=== PATIENT | female | born 1950 | race Caucasian/White ===

== ENCOUNTER 2020-10-01 07:50 | Outpatient (CLI) | payer MEDICARE, SELFPAY ==
--- NOTE | ~2020-10-01 | DEXA_ITS ---
Bone Density Report Name: Kimberley Rivera Age: 69 Sex: Female Ethnicity: White Date of : 1950 Indication: postmenopausal; height loss; cancer; Referring Provider: Pedro Schwartz Study: Bone densitometry was performed. Exam Date: October 01, 2020 Accession number: [id number] Bone Density: Region BMD T-score Z-score Classification AP Spine (L1, L3) 0.924 -0.8 1.2 Normal Femoral Neck (Left) 0.674 -1.6 0.2 Osteopenia Total Hip (Left) 0.817 -1.0 0.5 Normal Total Hip Bilateral Avg 0.805 -1.1 0.4 Osteopenia Femoral Neck (Right) 0.672 -1.6 0.2 Osteopenia Total Hip (Right) 0.793 -1.2 0.3 Osteopenia World Health Organization criteria for BMD impression classify patients as: Normal (T-score at or above -1.0), Osteopenia (T-score between -1.0 and -2.5), or Osteoporosis (T-score at or below -2.5). 10-year Fracture Risk(1): Major Osteoporotic Fracture 8.8% Hip Fracture 1.4% Reported Risk Factors: [place] (), Neck BMD=0.672, BMI=20.6 (1) FRAX(R) Version 3.08. Fracture probability calculated for an untreated patient. Fracture probability may be lower if the patient has received treatment. Clinical Information Provided by Patient: Has used the following medications: Vitamin D, Calcium Has the following medical conditions: Cancer Patient maximum height was 65.5 Menopause Age: 54 Drinks caffeinated beverages Onset of menses at age 13 Number of children 2 Impression: The patient has low bone mass, based on the Left Femoral Neck T-score. The patient has an estimated ten-year risk of hip fracture of 1.4% and an estimated ten-year risk of major fracture of 8.8%, based on the WHO FRAX algorithm. Discussion: BONE DENSITY IS LOW AT ONE OR MORE SKELETAL SITES. This patient's lowest T-score is low at one or more skeletal sites. It meets the World Health Organization's (WHO) criteria for ?low bone mass? (T-score between -1.0 and -2.5). The patient's 10-year risk of fracture as calculated by FRAX is less than the threshold where pharmacological therapy is recommended by the National Osteoporosis Foundation (NOF). However, all treatment decisions require clinical judgment and consideration of individual patient factors, including patient preferences, comorbidities, previous drug use, risk factors not captured in the FRAX model (e.g., frailty, falls, vitamin D deficiency, increased bone turnover, interval significant decline in bone density) and possible under or overestimation of fracture risk by FRAX. The patient should follow a healthful lifestyle (good nutrition with adequate calcium and vitamin D, and appropriate weight-bearing exercise). Follow-Up: Consider repeating this study in 2 to 3 years to reassess this patient's status, or sooner if there is some new clinical indication. Reported by: FRANKIE on
== END 2020-10-01 07:51 | disposition home or self-care (01) ==
PROVIDERS: PCP Family Medicine; Visit Provider Family Medicine
DX: Z78.0 Asymptomatic menopausal state (principal); M85.852 Other specified disorders of bone density and structure, left thigh; M85.851 Other specified disorders of bone density and structure, right thigh
CPT/HCPCS: 77080

== ENCOUNTER → 2022-09-09 14:29 | Outpatient (CLI) | payer MEDICARE, SELFPAY ==
--- NOTE | ~2022-09-09 | XR_ITS ---
EXAMINATION: XR forearm LT 2V INDICATION: Left forearm pain TECHNIQUE: Two views of the left forearm are obtained. COMPARISON: None available FINDINGS: There is suggestion of a transverse neck fracture of the proximal radius. A small elbow wilbur nt effusion is present. 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 IMPRESSION: 1. Possible nondisplaced transverse neck fracture of the proximal radius. Dedicated elbow radiographs are recommended. Reviewed, dictated and finalized at location L. IMPRESSION: 1. Possible nondisplaced transverse neck fracture of the proximal radius. Dedic ated elbow radiographs are recommended.
--- NOTE | ~2022-09-09 | XR_ITS ---
EXAMINATION: XR wrist LT min 3V DATE: 09/09/2022 14:49 INDICATION: Left wrist pain TECHNIQUE: Posteroanterior, ulnar deviation, oblique, and lateral views of the left wrist were obtain ed. COMPARISON: None available FINDINGS: Bone alignment is normal. There is no fracture. There is mild osteoarthritis at the first c arpal metacarpal joint. IMPRESSION: 1. No acute osseous abnormality. Reviewed, dictated and finalized at location L.
== END ==
PROVIDERS: PCP Family Medicine; Visit Provider Family Medicine
DX: M79.632 Pain in left forearm (principal)
CPT/HCPCS: 73090; 73110

== ENCOUNTER → 2022-09-10 10:22 | Outpatient (CLI) | payer MEDICARE, SELFPAY ==
--- NOTE | ~2022-09-10 | XR_ITS ---
EXAMINATION: XR elbow LT min 3V DATE: 09/10/2022 10:41 INDICATION: Left elbow pain TECHNIQUE: Anteroposterior, two oblique and lateral views of the left elbow were obtained. COMPARISON: 09/09/2022 FINDINGS: There is a nondisplaced transverse neck fracture of the proximal radius. A small elbow join t effusion is present. No additional fracture is identified. There is mild osteoarthritis of the elbo w. Soft tissues are unremarkable. IMPRESSION: 1. Nondisplaced transverse neck fracture of the proximal radius. Reviewed, dictated and finalized at location []
== END ==
PROVIDERS: PCP Family Medicine; Visit Provider Family Medicine
DX: M25.522 Pain in left elbow (principal); S52.135D Nondisplaced fracture of neck of left radius, subsequent encounter for closed fracture with routine healing; X58.XXXD Exposure to other specified factors, subsequent encounter
CPT/HCPCS: 73080

== ENCOUNTER 2024-08-18 14:44 | Outpatient (CLI) | payer MEDICARE, SELFPAY ==
--- NOTE | ~2024-08-18 | DEXA_ITS ---
Bone Density Report Name: RACHEL DILL Age: 73 Sex: Female Ethnicity: White Date of : 1950 Indication: osteopenia; height loss; prior fracture; cancer; Referring Provider: YONG NOONAN Study: Bone densitometry was performed. Exam Date: August 18, 2024 Accession number: [id number] Bone Density: Region BMD T-score Z-score Classification AP Spine(L1-L4) 0.858 -1.7 0.6 Osteopenia Femoral Neck (Left) 0.677 -1.5 0.5 Osteopenia Total Hip (Left) 0.824 -1.0 0.7 Normal Femoral Neck (Right) 0.649 -1.8 0.2 Osteopenia Total Hip (Right) 0.728 -1.8 0.0 Osteopenia Total Hip Mean 0.776 -1.4 0.4 Osteopenia World Health Organization criteria for BMD impression classify patients as: Normal (T-score at or above -1.0), Osteopenia (T-score between -1.0 and -2.5), or Osteoporosis (T-score at or below -2.5). 10-year Fracture Risk(1): Major Osteoporotic Fracture 16% Hip Fracture 3.3% Reported Risk Factors: [place] (), Neck BMD=0.649, BMI=21.6, previous fracture (1) FRAX(R) Version 3.08. Fracture probability calculated for an untreated patient. Fracture probability may be lower if the patient has received treatment. Previous Exams: Region Exam Age BMD T-score BMD Change BMD Change Date g/cm2 vs Baseline vs Previous Total Hip(Left) 08/18/2024 73 0.824 -1.0 0.007 (0.9%) 0.007 (0.9%) 10/01/2020 69 0.817 -1.0 Total Hip(Right) 08/18/2024 73 0.728 -1.8 -0.065 (-8.2%) -0.065 (-8.2%) 10/01/2020 69 0.793 -1.2 *Denotes significance at 95% confidence level, LSC for Total Hip = 0.027 g/cm2 Clinical Information Provided by Patient: Has had a low trauma fracture Has used the following medications: Vitamin D, Calcium Has the following medical conditions: Cancer Patient maximum height was 65.5 Menopause Age: 54 Does not regularly consume dairy products Drinks caffeinated beverages Onset of menses at age 13 Number of children 2 Impression: The patient has low bone mass, based on the Right Total Hip T-score. The patient has an estimated ten-year risk of hip fracture of 3.3% and an estimated ten-year risk of major fracture of 16%, based on the WHO FRAX algorithm. The patient has risk factors, including: previous fracture. The BMD for the Total Hip(Right) decreased, changing by -8.2% since the last DXA exam. Discussion: BONE DENSITY IS LOW AT ONE OR MORE SKELETAL SITES. THE PATIENT'S BMD AND CLINICAL RISK FACTORS CONTRIBUTE TO THIS PATIENT'S INCREASED RISK OF FRACTURE. This patient's lowest T-score is low at one or more skeletal sites. It meets the World Health Organization's (WHO) criteria for ?low bone mass? (T-score between -1.0 and -2.5). The patient's 10-year risk of hip fracture as calculated by FRAX exceeds the threshold where pharmacological therapy is recommended by the National Osteoporosis Foundation (NOF). However, all treatment decisions require clinical judgment and consideration of individual patient factors, including patient preferences, comorbidities, previous drug use, risk factors not captured in the FRAX model (e.g., frailty, falls, vitamin D deficiency, increased bone turnover, interval significant decline in bone density) and possible under or overestimation of fracture risk by FRAX. The patient should follow a healthful lifestyle (good nutrition with adequate calcium and vitamin D, and appropriate weight-bearing exercise). Follow-Up: Consider a repeat BMD and Vertebral Fracture Assessment (VFA) exam in 2 years or sooner if medically necessary, to reassess this patient's status. Reported by: FRANKIE on 08/18/2024 3:30:00 PM. Reviewed, dictated and finalized at location A.
--- OUTSIDE RECORDS SUMMARY | 2024-08-18 15:26 | XMS_ITS | Encounter Summary ---
Author Organization [facility] Address [address] [place] [address] Care Team Providers Care Joint Terminal Attack Controller Name Role Phone Unavailable Primary Care Provider Unavailabl e Encounter Details Date Type Department Care Team (Late st Contact Info) Description 12/22/2018 Lab Requisition [facility] [address] [place] [address] Jack Jett MD [address] [place] [address] Social History Tobacco Use Types Packs/Day Years Used Date Smoking Tobacco: Never Assessed Comments Unknown Sex and Gender Information Value Date Recorded Sex Assigned at Not on file Legal Sex Female 6:03 PM 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 Gender Identity Not on file Sexual Orientation Not on file documented as of this encounter Plan of Treatment Not on file documented as of this encounter Procedures Procedure Name Priority Date/Time Associated Diagnosis Comments DERMATOPATHOLOGY Routine 12/21/2018 12:0 0 AM CDT documented in this encounter Results * DERMATOPATHOLOGY (12/21/2018 12:00 AM CDT) Case Report Dermatopathology Report Case: [id number] Authorizing Provider: Jack Jett MD Collected: 12/21/2018 12:00 AM Ordering Location: [facility] Received: 12/22/2018 10:48 AM Pathologist: Jessie Hicks MD Specimen: Skin, dorsal right hand 9 4:28 PM CDT DERMATOPATHOLOGY LABORATORY Final Diagnosis Specimen A. SKIN, dorsal right hand: SQUAMOUS CELL CARCINOMA, WELL DIFFERENTIATED (C44.622) 9 4:28 PM CDT DERMATOPATHOLOGY LABORATORY at 1628 CDT Clinical History R/O KA. 4:28 PM CDT DERMATOPATHOLOGY LABORATORY Gross Description Specimen A: Received is one formalin filled container labeled with the patient's name and designated dorsal right hand. The specimen consists of a shave biopsy (2 pieces) measuring [id number] & [id number]. Jar 0. 4:28 PM CDT DERMATOPATHOLOGY LABORATORY Microscopic Description Specimen A. SKIN, dorsal right hand: Arising in the epidermis and extending into the dermis there are irregularly shaped aggregates of keratinocytes showing evidence of premature cornification. 4:28 PM CDT DERMATOPATHOLOGY LABORATORY Disclaimer An external and internal positive and negative controls are appropriate for the histochemical, immunohistochemical and immunofluorescence stain(s) in this case (if any), except where stated explicitly. The performance characteristics of the stain(s) cited in this report were developed and its performance characteristic determined by the Dermatopathology Laboratory at [facility], directed by Dr. Bryant Hicks. These tests need not be, and therefore are not, approved by the [place] Food and Drug Administration. The tests are used for clinical purposes. Billing Codes Specimen Charges Stain Charges 01013 1 4:28 PM CDT DERMATOPATHOLOGY LABORATORY Embedded Images 4:28 PM CDT DERMATOPATHOLOGY LABORATORY Pathology/Cytolog y TISSUE SPECIMEN FROM SKIN / Unknown 12/21/2018 12/22/2018 10:48 AM CDT Jack Jett MD LAB - PATHOLOGY/CYTOLOGY ORD ERABLES Final Result DERMATOPATHOLOGY LABORATORY [facility] - Department of Dermatology [address] [place] [address], [address] [place] [address], [facility] [phone] documented in this encounter Visit Diagnoses Not on filedocumented in this encounter
--- OUTSIDE RECORDS SUMMARY | 2024-08-18 15:26 | XMS_ITS | Clinical Summary ---
Author Organization [facility] Address [address] [place] [address] Phone Care Team Providers Care Warehouse Shift Supervisor Name Role Phone Pedro Schwartz MD Primary Care Provider [phone] Allergies No known active allergies Medications OTHER Juice plus Active CALCIUM PO Take by mouth. Active ERGOCALCIFEROL (VITAMIN D PO) Take by mouth. Active FIBER PO Take by mouth. Active Gqtnqayq-Twxkj-O rb 149-Hyal Ac (GLUCOS CHOND CPLX ADVANCED) 750-100-125 mg Oral Tab Take by mouth daily. Active Flaxseed Oil [facility] OilIndications:B reast cancer (CMS/HCC) by [facility].(Non-D rug; Combo Route) route. Active LACTOBACILLUS COMBO NO.6 (PROBIOTIC COMPLEX ORAL) Take by mouth. Active Active Problems Problem Noted Date Diagnosed Date Breast Cancer 2004 Right E2iFumk ER+ 01/24/2009 Encounters Date Type Department Care Team Description 08/16/2024 External Device Data STL ABSTRACTION Provider, Abstract 08/04/2024 External Device Data STL ABSTRACTION Provider, Abstract 08/03/2024 External Device Data STL ABSTRACTION Provider, Abstract 08/02/2024 External Device Data STL ABSTRACTION Provider, Abstract from Last 3 Months Immunizations Immunization Administration Dates Next Due Zoster Vaccine Live SQ 01/07/2011 Family History Medical History Relation Name Comments Other Daughter diabetic Heart Disease Father Other Father diabetic Cancer Maternal Grandmother Cancer Mother skin Relation Name Status Comments Daughter Father Maternal Grandmother Mother Social History Tobacco Use Types Packs/Day Years Used Date Smoking Tobacco: Never Alcohol Use Standard Drinks/Week Comments No 0 (1 standard drink = 0.6 oz pur e alcohol) Comments No Sex and Gender Information Value Date Recorded Sex Assigned at Not on file Legal Sex Female 5:42 AM REDUCING SYSTEM OPERATOR Gender Identity Not on file Sexual Orientation Not on file Occupation Industry Job Start Date Job End Date Not on file Not on file Not on file Not on file Last Filed Vital Signs Vital Sign Reading Time Taken Comments Blood Pressure 140/100 03/05/2015 11:05 AM REDUCING SYSTEM OPERATOR Pulse 80 03/05/2015 11:05 AM REDUCING SYSTEM OPERATOR Temperature 36.7 C (98 F) 03/05/2015 11:05 AM REDUCING SYSTEM OPERATOR Respiratory Rate 16 03/05/2015 11:05 AM REDUCING SYSTEM OPERATOR Oxygen Saturation - - Inhaled Oxygen Concentration - - Weight 55.9 kg (123 lb 3.2 oz) 03/05/2015 11:05 AM REDUCING SYSTEM OPERATOR Height 165.1 cm (5' 5) 03/05/2015 11:05 AM REDUCING SYSTEM OPERATOR Body Mass Index 20.5 03/05/2015 11:05 AM REDUCING SYSTEM OPERATOR Plan of Treatment Upcoming Encounters Date Type Department Care Team (Late st Contact Info) Description 09/24/2024 8:[address] [facility] [place] [facility] [address] [place] [address] Tom Bedoya MD [address] [place] [address] Health Maintenance Due Date Last Done Comments DTAP/TDAP/TD VACCINES (1 - Tdap) 1969 COLORECTAL SCREENING 11/27/1995 Colorectal Cancer Screening 11/27/1995 FIT-DNA Q 3 years 11/27/1995 FIT/FOBT Q 1 year 11/27/1995 Flex Sig/CT Colonography Q 5 years 11/27/1995 PNEUMOCOCCAL VACCINE 50+ YEA RS (1 of 1 - PCV) 2000 ZOSTER VACCINE (2 of 3) 03/04/2011 01/07/2011 OSTEOPOROSIS SCREENING 02/23/2017 2, 08/14/2009, 08/14/2009 INFLUENZA VACCINE (#1) 2023 BREAST CANCER SCREENING 09/23/2024 09/24/19 24, 03/02/2023, 10/29/2022, Additional history exists RSV VACCINE (60+ or ) (1 - 1-dose 75+ series) 2025 Procedures Procedure Name Priority Date/Time Associated Diagnosis Comments MAMMO 3D GINGER SCREEN BILAT W OR WO CAD Routine 09/24/2023 4:29 PM CDT Screening mammogram for breast cancer XR DEXA BONE DENSITY AXIAL 1 OR MORE SITES Routine 02/24/2012 1:23 PM REDUCING SYSTEM OPERATOR Breast Cancer 2005 Right [id number] ER+ Special screening for osteoporosis from Last 3 Months or Most Recently Relevant to Health Maintenance Results * MAMMO 3D GINGER SCREEN BILAT W OR WO CAD (09/24/2023 4:29 PM CDT) Anatomical Region Laterality Modality Breast Bilateral Mammography 09/24/2023 4:32 PM CDT Impressions 09/25/2023 8:47 AM CDT IMPRESSION: No evidence of malignancy and no interval change. RECOMMENDATIONS: Bilateral annual screening mammogram. Right breast overall assessment: BI-RADS Category 2. Benign findings. Left breast overall assessment: BI-RADS Category 1. Negative. DICTATION LOCATION: [facility] 09/25/2023 8:47 AM CDT BILATERAL SCREENING DIGITAL MAMMOGRAMS WITH COMPUTER ASSISTED DIAGNOSIS WITH TOMOGRAPHY DATE: 09/24/2023 4:29 PM HISTORY: Right breast cancer and the right lumpectomy. Annual checkup. COMPARISON: 03/02/2023, 03/13/2023 and 02/26/2022 TECHNIQUE: A bilateral screening mammogram was performed. Low-dose full-field digital breast tomosynthesis examination was performed with 2D and 3D acquisitions. Examination is read in conjunction with computer aided detection. BREAST COMPOSITION: Scattered fibroglandular densities. FINDINGS: No new masses, suspicious calcifications, or areas of asymmetry or distortion are identified. The postsurgical changes in the right breast are again seen, unchanged. The images were reviewed using the CAD system. Procedure Note Genie Newman MD - 09/25/2023 BILATERAL SCREENING DIGITAL MAMMOGRAMS WITH COMPUTER ASSISTED DIAGNOSIS WITH TOMOGRAPHY DATE: 09/24/2023 4:29 PM HISTORY: Right breast cancer and the right lumpectomy. Annual checkup. COMPARISON: 03/02/2023, 03/13/2023 and 02/26/2022 TECHNIQUE: A bilateral screening mammogram was performed. Low-dose full-field digital breast tomosynthesis examination was performed with 2D and 3D acquisitions. Examination is read in conjunction with computer aided detection. BREAST COMPOSITION: Scattered fibroglandular densities. FINDINGS: No new masses, suspicious calcifications, or areas of asymmetry or distortion are identified. The postsurgical changes in the right breast are again seen, unchanged. The images were reviewed using the CAD system. IMPRESSION: No evidence of malignancy and no interval change. RECOMMENDATIONS: Bilateral annual screening mammogram. Right breast overall assessment: BI-RADS Category 2. Benign findings. Left breast overall assessment: BI-RADS Category 1. Negative. DICTATION LOCATION: [facility] Tom Bedoya MD MAMMO ORDERABLES Final Result * XR DEXA BONE DENSITY AXIAL 1 OR MORE SITES (02/24/2012 1:23 PM REDUCING SYSTEM OPERATOR) Anatomical Region Laterality Modality Computed Radiogr aphy 02/24/2012 1:22 PM REDUCING SYSTEM OPERATOR Narrative 02/24/2012 1:30 PM REDUCING SYSTEM OPERATOR Examination: Bone Density Study (DEXA) Clinical History: 61 year-old postmenopausal female. Findings: Lumbar Spine ( L1 ) spine bone mineral density is 0.96 g/sq cm and corresponds to a T-score of -1.5. Femoral neck densities: Left femoral neck bone mineral density is 0.93 g/sq cm and corresponds to a T-score of -0.8. Right femoral neck bone mineral density is 0.89 g/sq cm and corresponds to a T-score of -1.1. Average femoral neck bone mineral density is 0.91 g/sq cm and corresponds to a T-score of -0.9. Forearm: The bone mineral density of the left 33% radius is 0.81 g/sq cm and corresponds to a T-score of -0.9. IMPRESSION Abnormal bone mineral density with: Osteopenic lumbar spine density. Normal femoral neck density. Normal forearm density. The patient is at low risk for a fracture. Comments: L2-L4 excluded because of DJD. Detailed report to follow. Dictated by Dr. Ayden Talbot MD Procedure Note Ayden Talbot MD - 02/24/2012 Examination: Bone Density Study (DEXA) Clinical History: 61 year-old postmenopausal female. Findings: Lumbar Spine ( L1 ) spine bone mineral density is 0.96 g/sq cm and corresponds to a T-score of -1.5. Femoral neck densities: Left femoral neck bone mineral density is 0.93 g/sq cm and corresponds to a T-score of -0.8. Right femoral neck bone mineral density is 0.89 g/sq cm and corresponds to a T-score of -1.1. Average femoral neck bone mineral density is 0.91 g/sq cm and corresponds to a T-score of -0.9. Forearm: The bone mineral density of the left 33% radius is 0.81 g/sq cm and corresponds to a T-score of -0.9. IMPRESSION Abnormal bone mineral density with: Osteopenic lumbar spine density. Normal femoral neck density. Normal forearm density. The patient is at low risk for a fracture. Comments: L2-L4 excluded because of DJD. Detailed report to follow. Dictated by Dr. Ayden Talbot MD Shruti Maxwell DO DIAGNOSTIC IMAGING ORDERABL ES Final Result from Last 3 Months or Most Recently Relevant to Health Maintenance Insurance Care Teams Warehouse Shift Supervisor Relationship Specialty Start Date End Date Pedro Schwartz MD [address] [phone] PCP - General Family Practice 03/04/16
--- OUTSIDE RECORDS SUMMARY | 2024-08-18 15:26 | XMS_ITS | Continuity of Care Document ---
Author Organization [facility] Address [address] [place] [address] Phone Care Team Providers Care Washing And Screening Plant Supervisor Name Role Phone Jacob Pretty OD Unavailable Unavailable Advance Directives Directive Yes / No Effective Date File Name No Information Encounters Encounter Description Practice Location Reason(s) For Visit Diagnoses Date Provider Providers Copied on Encounter [facility], [address], [place], [place], [id number], [place] tel:[phone] [facility] No Information 5 Sukhwinder James. [address] [place], [address], [place]. tel: [phone] [facility], [address], [place], [place], [id number], [place] tel:[phone] [facility] VITREOUS - PVDVITREOUS - VITREOUS HEMORRHAGE Sep- 3 Sukhwinder James. [address] [place], [address], [place]. tel: [phone] Family History Family Member Type Diagnosis Age At Onset No Information Payers Payer name Insurance type Covered republican ID Authoriza tion(s) No Information Social History Type Description Quantity Date Captured Comments Sex Female Smoking Status No Information Chief Complaint And Reason For Visit No Information Reason For Referral Reason For Referral No Information History Of Present Illness Encounter Date Complaint History Of Prese nt Illness No Information Functional Status Date Functional Assessmen t No Information Instructions Date Instruction Additional Infor mation No Information Assessments Type Assessment Date No Information Patient Care Teams Name Effective Dates (start - stop) Status Members No Information
--- OUTSIDE RECORDS SUMMARY | 2024-08-18 15:26 | XMS_ITS | Clinical Summary ---
Author Organization [facility] Address [address] [place] [address] Care Team Providers Care National Stormwater Leader Name Role Phone Unavailable Primary Care Provider Unavailabl e Source Comments [facility],non-owned Affiliates and Associated Physician Practices is amultiple site organization consisting of ambulatory clinics and hospital sitesin [place], [place], [place] and [place]. This disclosure is being madepursuant to the Care Everywhere program and may not contain all information available regarding this patient. Last updated 17.[facility] Social History Tobacco Use Types Packs/Day Years Used Date Smoking Tobacco: Never Assessed Comments Unknown Sex and Gender Information Value Date Recorded Sex Assigned at Not on file Legal Sex Female 6:03 PM COPYHOLDER Gender Identity Not on file Sexual Orientation Not on file Plan of Treatment Health Maintenance Due Date Last Done Comments BONE DENSITY TESTING 1950 COLOGUARD (AGES 45-75) - COL ON CA SCREENING 1950 COLON MONITORING 1950 COLONOSCOPY - COLON CA SCREENING 1950 CT COLONOGRAPHY - COLON CA SCREENING 1950 Colorectal Cancer Screening 1950 FIT - COLON CA SCREENING 1950 FLEX SIG - COLON CA SCREENING 1950 LIPID TESTING 1950 MAMMOGRAM 1950 HEPATITIS C SCREENING 11/21/1968 DTAP/TDAP/TD VACCINES (1 - Tdap) 1969 PNEUMOCOCCAL VACCINE 50+ (1 of 1 - PCV) 2000 ZOSTER VACCINE (1 of 2) 2000 COVID-19 VACCINE ( - 2023-2 5 season) 2023 DEPRESSION SCREENING 03/16/2024 INFLUENZA VACCINE (Season Ended) 2024 Respiratory Syncytial Virus (RSV) Vaccine Pt: or over 60 yrs (1 - 1-dose 75+ series) 2025 HEPATITIS B VACCINE Aged Out No longe r eligible based on patient's age to complete this topic HIB VACCINE Aged Out No longer eligi ble based on patient's age to complete this topic HPV VACCINE Aged Out No longer eligi ble based on patient's age to complete this topic MENINGOCOCCAL (Group B) VACC INE SHARED DECISION-MAKING Aged Out No longer eligibl e based on patient's age to complete this topic MENINGOCOCCAL GROUPS A/C/Y/W VACCINE Aged Out No longer eligible b ased on patient's age to complete this topic Insurance
--- OUTSIDE RECORDS SUMMARY | 2024-08-18 15:26 | XMS_ITS | Encounter Summary ---
Author Organization [facility] Address [address] [place] [address] Care Team Providers Care [employer] Open Stack Administrator Name Role Phone Unavailable Primary Care Provider Unavailabl e Encounter Details Date Type Department Care Team (Late st Contact Info) Description 02/14/2019 Lab Requisition [facility] [address] [place] [address] Jack Jett MD [address] [place] [address] Social History Tobacco Use Types Packs/Day Years Used Date Smoking Tobacco: Never Assessed Comments Unknown Sex and Gender Information Value Date Recorded Sex Assigned at Not on file Legal Sex Female 6:03 PM POURING CRANE OPERATOR Gender Identity Not on file Sexual Orientation Not on file documented as of this encounter Plan of Treatment Not on file documented as of this encounter Procedures Procedure Name Priority Date/Time Associated Diagnosis Comments DERMATOPATHOLOGY Routine 02/09/2019 12:0 0 AM POURING CRANE OPERATOR documented in this encounter Results * DERMATOPATHOLOGY (02/09/2019 12:00 AM POURING CRANE OPERATOR) Case Report Dermatopathology Report Case: [id number] Authorizing Provider: Jack Jett MD Collected: 02/09/2019 12:00 AM Ordering Location: [facility] Received: 02/14/2019 01:25 PM Pathologist: Jessie Hicks MD Specimen: Skin, right mid medial triceps 9 2:25 PM POURING CRANE OPERATOR DERMATOPATHOLOGY LABORATORY Final Diagnosis Specimen A. SKIN, right mid medial triceps: BASAL CELL CARCINOMA, SUPERFICIAL MULTIFOCAL (C44.612) 9 2:25 PM POURING CRANE OPERATOR DERMATOPATHOLOGY LABORATORY at 1425 POURING CRANE OPERATOR Clinical History R/O SCC, SCCIS, BCC. 2:25 PM POURING CRANE OPERATOR DERMATOPATHOLOGY LABORATORY Gross Description Specimen A: Received is one formalin filled container labeled with the patient's name and designated right mid medial triceps. The specimen consists of a shave biopsy measuring [id number]. Jar 0. 2:25 PM POURING CRANE OPERATOR DERMATOPATHOLOGY LABORATORY Microscopic Description Specimen A. SKIN, right mid medial triceps: Attached to the undersurface of the epidermis, there are small aggregates of basaloid cells with a high nuclear to cytoplasmic ratio and peripheral palisading. 2:25 PM POURING CRANE OPERATOR DERMATOPATHOLOGY LABORATORY Disclaimer An external and internal positive and negative controls are appropriate for the histochemical, immunohistochemical and immunofluorescence stain(s) in this case (if any), except where stated explicitly. The performance characteristics of the stain(s) cited in this report were developed and its performance characteristic determined by the Dermatopathology Laboratory at [facility], directed by Dr. Bryant Hicks. These tests need not be, and therefore are not, approved by the [place] Food and Drug Administration. The tests are used for clinical purposes. Billing Codes Specimen Charges Stain Charges 27527 1 2:25 PM POURING CRANE OPERATOR DERMATOPATHOLOGY LABORATORY Embedded Images 2:25 PM POURING CRANE OPERATOR DERMATOPATHOLOGY LABORATORY Pathology/Cytolog y TISSUE SPECIMEN FROM SKIN / Unknown 02/09/2019 02/14/2019 1:25 PM POURING CRANE OPERATOR Jack Jett MD LAB - PATHOLOGY/CYTOLOGY ORD ERABLES Final Result DERMATOPATHOLOGY LABORATORY [facility] - Department of Dermatology [address] [place] [address], [address] [place] [address], [facility] [phone] documented in this encounter Visit Diagnoses Not on filedocumented in this encounter
--- OUTSIDE RECORDS SUMMARY | 2024-08-18 15:26 | XMS_ITS | Referral Summary ---
Author Organization [facility] Address [address] [place] [address] Care Team Providers Care Vp Analytics Name Role Phone Pedro Schwartz MD Primary Care Provider Allergies No known active allergies Medications azithromycin (ZITHROMAX) 250 mg tablet azithromycin 250 mg tablet Active benzonatate (TESSALON) 100 mg capsule benzonatate 100 mg capsule Active cefadroxil (DURICEF) 500 mg capsule cefadroxil 500 mg capsule Active doxycycline (doxycycline hyclate) 100 mg capsule doxycycline hyclate 100 mg capsule Active flaxseed oil oil by [facility]Non-Drug; Combo Route) route. Active influenza trivalent high dose 3877-1379 (FLUZONE HIGH DOSE) 180 mcg/0.5 mL syringe Fluzone High-Dose 9610-7036 (PF) 180 mcg/0.5 mL intramuscular syringe ADMINISTER 0.5ML IN THE MUSCLE DIRECTED Active PREVIDENT 5000 BOOSTER PLUS 1.1 % paste 5 9 Active glucosam-chond -hrb 149-hyal ac 750 mg-100 mg- 125 mg-1.65 mg tablet Take by mouth daily Active flu vaccine ts 2016-17,4yr up, 45 mcg (15 mcg x 3)/0.5 mL suspension Fluvirin 1941-5548 45 mcg (15 mcg x 3)/0.5 mL intramuscular suspension ADM 0.5ML IM UTD Active influenza trivalent 5594-8173 (FLUAD 7694-7310, 65 YR UP,,PF,) 45 mcg (15 mcg x 3)/0.5 mL syringe Fluad 2019-20 65yr up(PF)45 mcg(15 mcgx3)/0.5 mL intramuscular syringe ADM 0.5ML IM UTD Active influenza trivalent high dose (FLUZONE HIGH DOSE) 180 mcg/0.5 mL syringe Fluzone High-Dose (PF) 180 mcg/0.5 mL intramuscular syringe ADM 0.5ML IM UTD Active HYDROcodone-ac etaminophen (NORCO) 5-325 mg per tablet hydrocodone 5 mg-acetaminophen 325 mg tablet Active Active Problems No known active problems Social History Tobacco Use Types Packs/Day Years Used Date Smoking Tobacco: Never Personal Safety Answer Date Recorded Getting School Help Needed Not on file 05/29 Comments Unknown Sex and Gender Information Value Date Recorded Sex Assigned at Not on file 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 Gender Identity Not on file Sexual Orientation Not on file Last Filed Vital Signs Vital Sign Reading Time Taken Comments Blood Pressure 151/79 09/30/2019 2:15 PM CDT Pulse 75 09/30/2019 2:15 PM CDT Temperature 36.9 C (98.5 F) 09/30/2019 2:15 PM CDT Respiratory Rate - - Oxygen Saturation 100% 09/30/2019 2:15 PM CDT Inhaled Oxygen Concentration - - Weight 54.4 kg (120 lb) 09/30/2019 2:15 PM CDT Height 165.1 cm (5' 5) 09/30/2019 2:15 PM CDT Body Mass Index 19.97 09/30/2019 2:15 PM CDT Plan of Treatment Not on file Insurance [facility] MEDICARE ADVANTAGE [facility] Address: [facility] [address] [place] [address] [facility] MEDICARE ADVANTAGE [facility]IC[facility] Address: [facility] [address] [place] [address] Advance Directives For more information, please contact: [phone] Documents on File Type Date Recorded 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
--- OUTSIDE RECORDS SUMMARY | 2024-08-18 15:26 | XMS_ITS | Clinical Summary ---
Author Organization [facility] [place] [facility] [place] Address [address] [place] [address] Care Team Providers Care Parent Trainer Name Role Phone Pedro Schwartz MD Primary Care Provider Allergies No known active allergies Medications azithromycin (ZITHROMAX) 250 mg tablet azithromycin 250 mg tablet Active benzonatate (TESSALON) 100 mg capsule benzonatate 100 mg capsule Active cefadroxil (DURICEF) 500 mg capsule cefadroxil 500 mg capsule Active doxycycline (doxycycline hyclate) 100 mg capsule doxycycline hyclate 100 mg capsule Active flaxseed oil oil by [facility].(Non-Drug; Combo Route) route. Active influenza trivalent high dose 0020-6077 (FLUZONE HIGH DOSE) 180 mcg/0.5 mL syringe Fluzone High-Dose 5243-9369 (PF) 180 mcg/0.5 mL intramuscular syringe ADMINISTER 0.5ML IN THE MUSCLE DIRECTED Active PREVIDENT 5000 BOOSTER PLUS 1.1 % paste 5 9 Active glucosam-chond -hrb 149-hyal ac 750 mg-100 mg- 125 mg-1.65 mg tablet Take by mouth daily Active flu vaccine ts 2016-17,4yr up, 45 mcg (15 mcg x 3)/0.5 mL suspension Fluvirin 6512-4545 45 mcg (15 mcg x 3)/0.5 mL intramuscular suspension ADM 0.5ML IM UTD Active influenza trivalent 6321-8029 (FLUAD 5712-5544, 65 YR UP,,PF,) 45 mcg (15 mcg [...] on file 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 Gender Identity Not on file Sexual Orientation Not on file Obstetrics History Last Filed Vital Signs Vital Sign Reading [...] Plan of Treatment Not on file Insurance [facility] MEDICARE ADVANTAGE [facility] MEDICARE ADVANTAGE Advance Directives For more information, please contact: [phone] Documents on File Type Date Recorded 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
== END 2024-08-18 14:45 | disposition home or self-care (01) ==
LOC: ANHIMG 14:50
PROVIDERS: PCP Family Medicine; Visit Provider Family Medicine
DX: M85.89 Other specified disorders of bone density and structure, multiple sites (principal); Z78.0 Asymptomatic menopausal state
CPT/HCPCS: 77080